=== PATIENT | male | born 1990 | race Two or more races ===

== ENCOUNTER 2021-09-08 04:15 | Emergency (ER) | payer BC, OTHER ==
[~2021-09-08] VITALS: Ht 177.8 cm; Wt 113.4 kg
[2021-09-08] MEDS ORDERED: MECL25CH38 PO (05:30)
[2021-09-08 05:45] VITALS: BP 169/105
== END 2021-09-08 06:22 | disposition home or self-care (01) ==
LOC: ER 04:15
DX: S09.90XA Unspecified injury of head, initial encounter (principal); I10 Essential (primary) hypertension; W19.XXXA Unspecified fall, initial encounter; Y93.89 Activity, other specified; Y92.89 Other specified places as the place of occurrence of the external cause; Y99.8 Other external cause status
CPT/HCPCS: 70450